=== PATIENT | male | born 1970 | race Two or more races ===

== ENCOUNTER 2022-04-14 23:04 | Emergency (ER) | payer OTHER ==
[~2022-04-14] VITALS: Ht 188 cm; Wt 86.6 kg
[2022-04-14 23:25] VITALS: BP 112/62
[2022-04-15 01:13] LABS: Basophils # (auto) 0 10 ^3/uL (0-0.2); Basophils % (auto) 0.1 % (0.0-2.0); Eosinophils # (auto) 0 10 ^3/uL (0-0.8); Eosinophils % (auto) 0.2 % (0.0-7.0); Hematocrit 35.9 % (41.0-53.0); Hemoglobin 11.7 g/dL (13.5-17.5); Lymphocytes # (auto) 1.6 10 ^3/uL (0.4-5.4); Lymphocytes % (auto) 16.1 % (10.0-50.0); Mean Corpuscular Hemoglobin 28.1 pg (28.0-32.0); Mean Corpuscular Hgb Conc. 32.6 g/dL (32.0-36.0); Mean Corpuscular Volume 86.3 fL (80.0-100.0); Monocytes # (auto) 0.6 10 ^3/uL (0-1.3); Monocytes % (auto) 6.1 % (0.0-12.0); Neutrophils # (auto) 7.9 10 ^3/uL (1.6-8.6); Neutrophils % (auto) 77.5 % (37.0-80.0); Red Blood Cells 4.15 10^6/uL (4.5-5.90); Red Cell Distribution Width 13.7 % (11.8-14.3); White Blood Cell 10.2 10^3/uL (4.4-10.8)
[2022-04-15 01:36] LABS: BUN/Creatinine Ratio 15.7; Potassium 3.5 mmol/L (3.5-5.1)
[2022-04-15 01:38] LABS: Bilirubin, Total 0.3 mg/dL (0.2-1.0); Total Protein 8.4 g/dL (6.4-8.2)
[2022-04-15] MEDS ORDERED: cefTRIAXone SOD 1,000 MG VL IM ONE (04:00)
[2022-04-15] MEDS ORDERED: CLINDAMYCIN 600 MG/4 ML VL IM ONE (04:00)
[2022-04-15] MEDS ORDERED: CEPH-510 PO (13:11)
[2022-04-15] MEDS ORDERED: BACDST PO (13:11)
[2022-04-15] MEDS ORDERED: IBUP800T26 PO (13:11)
== END 2022-04-15 08:19 | disposition left against medical advice (07) ==
LOC: ER 23:04
DX: L03.115 Cellulitis of right lower limb (principal); F17.210 Nicotine dependence, cigarettes, uncomplicated
CPT/HCPCS: 36415; 80053; 85025; 93971

== ENCOUNTER 2022-04-15 10:50 | Emergency (ER) | payer OTHER ==
[~2022-04-15] VITALS: Ht 188 cm; Wt 90.0 kg
[2022-04-15 12:15] VITALS: BP 121/69
[2022-04-15] MEDS ORDERED: IBUPROFEN 800 MG TAB PO ONE ×2 (12:30→13:00)
[2022-04-15] MEDS ORDERED: BACDST PO (13:11)
[2022-04-15] MEDS ORDERED: CEPH-510 PO (13:11)
[2022-04-15] MEDS ORDERED: IBUP800T26 PO (13:11)
== END 2022-04-15 14:06 | disposition home or self-care (01) ==
LOC: ER 10:50
DX: L03.115 Cellulitis of right lower limb (principal); F17.210 Nicotine dependence, cigarettes, uncomplicated